=== PATIENT | female | born 1955 | race Caucasian/White ===

== ENCOUNTER 2020-04-16 15:10 | Emergency (ER) | payer MEDICARE ==
[~2020-04-16] VITALS: Ht 160 cm; Wt 76.4 kg
[2020-04-16 15:21] VITALS: Ht 160 cm; Wt 76.4 kg
[2020-04-16] MEDS ORDERED: LASIX40 MG (15:21)
[2020-04-16] MEDS ORDERED: KLOR-CON M2020 MEQ (15:21)
[2020-04-16 17:32] LABS: BASOPHILS 0.4 % (0-2); EOSINOPHILS 0.4 % (0-7); HEMATOCRIT 44.6 % (36.0-48.0); HEMOGLOBIN 13.7 g/dL (12-16); IMMATURE GRANULOCYTES 0.3 % (0-5); LYMPHOCYTES 9.5 % (15-50); MCH 28.3 pg (26.0-34.0); MCHC 30.7 g/dL (31.0-37.0); MCV 92.1 fL (80.0-100.0); MEAN PLATELET VOLUME 10.6 fL (7.4-10.4); MONOCYTES 7.2 % (2-11); NEUTROPHILS 82.2 % (40-80); PLATELET COUNT 209 10x3/uL (130-400); RBC 4.84 10x6/uL (4.00-5.40); RDW 14.2 % (11.5-14.5); WBC 7.6 10x3/uL (4.8-10.8)
[2020-04-16 17:40] LABS: CALCIUM 9.9 mg/dL (8.5-10.1); CARBON DIOXIDE 26.4 mmol/L (21.0-32.0); POTASSIUM - SERUM 3.4 mmol/L (3.5-5.1)
[2020-04-16 17:45] LABS: BILIRUBIN NEGATIVE (NEGATIVE); GLUCOSE NEGATIVE (NEGATIVE); KETONE LARGE mg/dL (NEGATIVE); NITRITE NEGATIVE (NEGATIVE); UROBILINOGEN NORMAL (NORMAL)
[2020-04-16 17:46] LABS: BACTERIA FEW /hpf (NEGATIVE); WHITE CELLS - URINE 0-5 /hpf (NEGATIVE)
[2020-04-16 17:47] LABS: ALBUMIN 4.1 g/dL (3.4-5.0); BILIRUBIN - TOTAL 0.45 mg/dL (0.2-1.3); PROTEIN - SERUM 8.2 g/dL (6.4-8.2)
[2020-04-16] MEDS ORDERED: ZOFRAN ODT4 MG/UDTAB PO (19:17)
[2020-04-16] MEDS ORDERED: KEFLEX500 MG PO (19:17)
[2020-04-16] MEDS ORDERED: HYDROCODON-ACE1 EAC7 PO (19:17)
[2020-04-16 20:49] VITALS: BP 188/85
== END 2020-04-16 20:50 | disposition home or self-care (01) ==
LOC: D.ER 15:10
PROVIDERS: Family Medicine
DX: R10.9 Unspecified abdominal pain (principal); M54.5 Low back pain; E86.0 Dehydration; R73.9 Hyperglycemia, unspecified; E87.6 Hypokalemia; R11.0 Nausea; N28.1 Cyst of kidney, acquired; S22.089A Unspecified fracture of T11-T12 vertebra, initial encounter for closed fracture; W10.9XXA Fall (on) (from) unspecified stairs and steps, initial encounter; Y93.9 Activity, unspecified; Y92.9 Unspecified place or not applicable; I25.2 Old myocardial infarction; J44.9 Chronic obstructive pulmonary disease, unspecified